=== PATIENT | male | born 1995 | race Caucasian/White ===

== ENCOUNTER 2017-12-15 22:19 | Emergency (ER) | payer SELFPAY ==
[~2017-12-15] VITALS: Ht 175.3 cm; Wt 104.3 kg
--- NOTE | 2017-12-15 22:35 | NUR ---
PT BIB HIS MOTHER WITH A C/O HEADACHE X 8 DAYS. PT HAS HX OF SEIZURE X1 YEARS AGO. PT STATED THAT HE OCCASIONALLY SEES FLASHING LIGHTS AND HAD A NOSE BLEED ON FRIDAY AND TODAY X1 EACH DAY.
[2017-12-15] MEDS ORDERED: diphenhydrAMINE HCL 50 MG/ML VIAL IV ONE (23:00)
[2017-12-15] MEDS ORDERED: METOCLOPRAMIDE HCL 10 MG/2 ML VIAL IV ONE (23:00)
[2017-12-15] MEDS ORDERED: IV NS 0.9% 250 ML BAG IV ONE (23:00)
[2017-12-15] MEDS ORDERED: diphenhydrAMINE HCL 50 MG/ML VIAL ONE (23:06)
[2017-12-15] MEDS ORDERED: METOCLOPRAMIDE HCL 10 MG/2 ML VIAL ONE (23:06)
[2017-12-15 23:30] LABS: BASOPHILS % (AUTO) 0.5 % (0.0-2.0); HEMATOCRIT 44 % (39-51); HEMOGLOBIN 15.4 g/dL (13.5-17.5); LYMPHOCYTES # (AUTO) 2.9 /CMM (0.8-4.8); LYMPHOCYTES % (AUTO) 29.5 % (20.0-44.0); MEAN CORPUSCULAR HGB CONC 35 g/dl (31.0-36.0); MEAN CORPUSCULAR VOLUME 83 fL (80-96); MONOCYTES # (AUTO) 0.7 /CMM (0.1-1.30); MONOCYTES % (AUTO) 7.2 % (2.0-12.0); NEUTROPHILS # (AUTO) 5.9 /CMM (1.8-8.9); NEUTROPHILS % (AUTO) 59.8 % (43.0-81.0); PLATELET COUNT (AUTO) 192 /CMM (150-450); RDW COEFFICIENT OF VARIATION 13.1 (11.5-15.0); RED BLOOD CELL COUNT(AUTO) 5.29 MIL/uL (4.5-6.0); WHITE BLOOD COUNT (AUTO) 9.8 K/uL (4.3-11.0)
--- NOTE | 2017-12-15 23:32 | NUR ---
PT REC'D MEDICATION ORDERED.
[2017-12-15 23:41] LABS: CALCIUM, SERUM 8.9 mg/dL (8.5-10.1); CREATININE 0.9 mg/dL (0.6-1.3); POTASSIUM 3.9 mmol/L (3.5-5.1)
--- NOTE | 2017-12-16 00:47 | NUR ---
Patient discharged to home in stable condition. Written and verbal after care instructions given. Patient verbalizes understanding of instruction.
[2017-12-16 00:56] VITALS: BP 119/72
== END 2017-12-16 00:57 | disposition home or self-care (01) ==
LOC: ER 22:19
DX: R51 Headache (principal); G40.909 Epilepsy, unspecified, not intractable, without status epilepticus; F17.200 Nicotine dependence, unspecified, uncomplicated
CPT/HCPCS: 36415; 80048; 85025; 96374; 96375; 99284; 99406; A4606 ×2; J1200; J2765; J7050; Z7610